=== PATIENT | male | born 1955 | race Caucasian/White ===

== ENCOUNTER → 2024-01-11 | Day surgery (SDC) | payer MEDICARE | LOC: CSHRAD 16:30 | PROVIDERS: ATTEND Internal Medicine Rheumatology | DX: M47.818 Spondylosis without myelopathy or radiculopathy, sacral and sacrococcygeal region (principal); M16.10 Unilateral primary osteoarthritis, unspecified hip | CPT/HCPCS: 72202; 73523 ==